=== PATIENT | male | born 1975 | race African-American/Black ===

== ENCOUNTER 2025-06-16 14:06 | Inpatient (IN) | payer OTHER ==
[~2025-06-16] VITALS: Ht 182.9 cm; Wt 104.5 kg
--- NOTE | 2025-06-16 15:08 | ED.PDOC ---
History of Present Illness(SKN HPI Comments A 49 YEAR OLD MALE BROUGHT IN BY AMBULANCE PRESENTS TO THE ED WITH COMPLAINT OF LUMP OF RIGHT BUTTOCK. PATIENT STATES HE HAS HAD A PAINFUL LUMP ON HIS RIGHT BUTTOCK WITH REDNESS AND SWELLING FOR THE PAST 1 WEEK. PATIENT REPORTS HE WAS ALREADY PRESCRIBED AMOXICILLIN, BUT NOTES THERE HAS BEEN NO IMPROVEMENT IN HIS SYMPTOMS. PATIENT DENIES FEVER, CHILLS, SHORTNESS OF BREATH, CHEST PAIN, ABDOMINAL PAIN, NAUSEA, VOMITING, HEADACHE, OR OTHER COMPLAINTS. NO OTHER SYMPTOMS OR MODIFYING FACTORS AT THIS TIME. PATIENT IS ALERT, ORIENTED X 4, AND HAS STEADY GAIT. Chief Complaint: Abscess Time Seen by MD: 14:27 History of Present Illness: Nurses Notes, Carousel Operator Notes, Medications, Allergies Information Source: Patient, Emergency Med Personnel Mode of Arrival: EMS Severity: Moderate Timing: Days Duration: Since onset, Days Prehospital treatment: None Location: Buttock Mechanism: Spontaneous Onset Occurence: Indoors Object: None Condition of Object: Contaminated, Dirty, None Retained Foreign Body: No Wound Type: None Immunization Status of Animal: NA Tetanus: UTD, Unknown History of: None Associated Signs and Symptoms: Redness, Swelling, Pain Past Medical History PAST MEDICAL HISTORY: Denies Surgical History: Denies all surgeries Family History Family History: Reviewed,noncontributory to illness Social History Smoker: Non-Smoker Alcohol: Denies ETOH Use Drugs: Denies Drug Use Lives In: Home Constitutional: denies: chills, diaphoresis, fatigue, fever, malaise, sweats, weakness, others EENTM: denies: blurred vision, double vision, ear bleeding, ear discharge, ear drainage, ear pain, ear ringing, eye pain, eye redness, hearing loss, mouth pain, mouth swelling, nasal discharge, nose bleeding, nose congestion, nose pain, photophobia, tearing, throat pain, throat swelling, voice changes, others Respiratory: denies: cough, hemoptysis, orthopnea, SOB at rest, shortness of breath, SOB with excertion, stridor, wheezing, others Cardiovascular: denies: chest pain, dizzy spells, diaphoresis, Dyspnea on exertion, edema, irregular heart beat, left arm pain, lightheadedness, palpitations, PND, syncope, others Gastrointestinal: denies: abdomen distended, abdominal pain, blood streaked bowels, constipated, diarrhea, dysphagia, difficulty swallowing, hematemesis, melena, nausea, poor appetite, poor fluid intake, rectal bleeding, rectal pain, vomiting, others Genitourinary: denies: burning, dysuria, flank pain, frequency, hematuria, incontinence, penile discharge, penile sore, pain, testicle pain, testicle swelling, urgency, others Neurological: denies: dizziness, fainting, headache, left sided numbness, left sided weakness, numbness, paresthesia, pre-existing deficit, right sided nu mbness, right sided weakness, seizure, speech problems, tingling, tremors, weakness, others Musculoskeletal: denies: back pain, gout, joint pain, joint swelling, muscle pain, muscle stiffness, neck pain, others Integumetry: reports: lumps (LUMP OF RIGHT BUTTOCK WITH REDNESS AND SWELLING); denies: bruises, change in color, change in hair/nails, dryness, laceration, lesions, rash, wounds, others Allergic/Immunocompromised: denies: Difficulty Healing, Frequent Infections, Hives, Itching, others Hematologic/Lymphatic: denies: anemia, blood clots, easy bleeding, easy bruising, swollen glands, others Endocrine: denies: excessive hunger, excessive sweating, excessive thirst, excessive urination, flushing, intolerance to cold, intolerance to heat, unexplained weight gain, unexplained weight loss, others Psychiatric: denies: anxiety, bipolar disorder, depression, hopeless, panic disorder, schizophrenia, sleepless, suicidal, others All Other Systems: Reviewed and Negative Physical Exam General Appearance: Mild Distress HEENT: Normal ENT Inspection, PERRL/EOMI, Pharynx Normal, TMs Normal Neck: Full Range of Motion, Non-Tender, Normal, Normal Inspection Respiratory: Chest Non-Tender, Lungs Clear, No Accessory Muscle Use, No Respiratory Distress, Normal Breath Sounds Cardiovascular: No Edema, No JVD, No Murmur, No Gallop, Normal Peripheral Pulses, Regular Rate/Rhythm Breast Exam: Deferred Gastrointestinal: No Organomegaly, Non Tender, No Pulsatile Mass, Normal Bowel Sounds, Soft Genitalia: Deferred Pelvic: Deferred Rectal: Deferred Extremities: Decreased range of motion, No calf tenderness, Normal capillary refill, No pedal edema, Swelling (REDNESS AND HARDNESS ON RIGHT MIDDLE INNER BUTTOCK, NO OPEN WOUND SEEN. ), Tender (REDNESS AND SWELLING ON RIGHT MIDDLE BUTTOCK. ) Musculoskeletal : Apperance: Normal Neurologic: Alert, screen printer II-XII nml as Tested, No Motor Deficits, Normal Affect, Normal Mood, No Sensory Deficits Cerebellar Function: Normal Reflexes: Normal Skin: Dry, Warm, Other (A LARGE BUMP WITH LOCALIZED REDNESS, SWELLING AND HARDNESS ON RIGHT MIDDLE INNER BUTTOCK, NO OPEN WOUND SEEN AND DRAINAGE, +CELLULITIS. ) Peripheral Pulses: 2+ carotid (R), 2+ carotid (L), 2+ dorsalis pedis (R), 2+ dorsalis pedis (L) Lymphatic: No Adenopathy Was a procedure done? Was a procedure done?: No Differential Diagnosis (INTG) Differential Diagnosis: Cellulitis, N/A Differential Diagnosis: Abscess, Cellulitis, Erysipelas, Hidradenitis suppurativa, Other (FURUNCLE) Differential Diagnosis: N/A Abscess: Cellulitis, Erysipelas, Felon, N/A Differential Diagnosis: N/A X-Ray, Labs, Meds, VS Vital Signs Date Time Temp Pulse Resp B/P (MAP) Pulse Ox O2 Delivery O2 Flow Rate FiO2 06/16/25 14:17 99.9 100 18 144/76 98 99.9 Lab Test 06/16/25 15:16 Range/Units White Blood Count 17.5 H 4.4-10.8 10^3/uL Red Blood Count 5.08 4.5-5.90 10^6/uL Hemoglobin 14.9 13.5-17.5 g/dL Hematocrit 42.9 41.0-53.0 % Mean Corpuscular Volume 84.5 80.0-100.0 fL Mean Corpuscular Hemoglobin 29.4 28.0-32.0 pg Mean Corpuscular Hemoglobin Concent 34.8 32.0-36.0 g/dL Red Cell Distribution Width 14.5 H 11.8-14.3 % Platelet Count 435 140-450 10^3/uL Mean Platelet Volume 6.3 L 6.9-10.8 fL Neutrophils (%) (Auto) 81.1 H 37.0-80.0 % Lymphocytes (%) (Auto) 10.4 10.0-50.0 % Monocytes (%) (Auto) 7.3 0.0-12.0 % Eosinophils (%) (Auto) 0.2 0.0-7.0 % Basophils (%) (Auto) 1.0 0.0-2.0 % Neutrophils # (Auto) 14.2 H 1.6-8.6 10 ^3/uL Lymphocytes # (Auto) 1.8 0.4-5.4 10 ^3/uL Monocytes # (Auto) 1.3 0-1.3 10 ^3/uL Eosinophils # (Auto) 0 0-0.8 10 ^3/uL Basophils # (Auto) 0.2 0-0.2 10 ^3/uL Nucleated Red Blood Cells 0.1 % Sodium Level 140 136-145 mmol/L Potassium Level 4.0 3.5-5.1 mmol/L Chloride Level 101 98-107 mmol/L Carbon Dioxide Level 30 20-31 mmol/L Anion Gap 9 5-15 Blood Urea Nitrogen 9 9-23 mg/dL Creatinine 1.21 0.700-1.30 mg/dL Glomerular Filtration Rate Calc 74 >90 mL/min BUN/Creatinine Ratio 7.4 L 10.0-20.0 Serum Glucose 110 H 74-106 mg/dL Lactic Acid Level 1.4 0.4-2.0 mmol/L Calcium Level 9.7 8.7-10.4 mg/dL X-Ray, Labs, Meds, VS Comment EXTERNAL MEDICAL RECORDS REVIEWED: [NONE] INDEPENDENT HISTORIANS: [NONE] SOCIAL DETERMINANTS OF HEALTH: [NONE] LABS ORDERED: CBC, BMP, LACTIC ACID W/REFLEX, BLOOD CULTURE REVIEWED AND INTERPRETED RESULTS: IMAGING ORDERED: NONE TREATMENTS ORDERED: ROCEPHIN 1 G IV, CLINDAMYCIN 900 MG IV, TORADOL 30 MG IV PROCEDURES PERFORMED: NONE CRITICAL CARE TIME: NONE I HAVE DISCUSSED THE PATIENT WITH THE ATTENDING PHYSICIAN DR. MACDONALD AND HE AGREES WITH THE PATIENT'S PLAN OF CARE. UPON MY PHYSICAL EXAMINATION, THE PATIENT HAD REDNESS, SWELLING, AND HARDNESS TO HIS RIGHT BUTTOCK REGION CONSISTENT WITH CELLULITIS. NO OPEN WOUND NOTED. PATIENT NOTED THAT HE HAD ALREADY BEEN TAKING A COURSE OF AMOXICILLIN WITH NO IMPROVEMENT IN HIS SYMPTOMS. DUE TO THE PATIENT'S PHYSICAL EXAM FINDINGS REVEALING FINDINGS CONSISTENT WITH CELLULITIS OF HIS RIGHT BUTTOCK AND THE FACT THAT HE HAS FAILED OUTPATIENT TREATMENT, I HAVE DETERMINED THE PATIENT SHOULD BE ADMITTED FOR FURTHER TREATMENT AND EVALUATION. THE ON-CALL HOSPITALIST WILL BE CONTACTED FOR ADMISSION OF THIS PATIENT. Time of 1ST Reevaluation: 16:18 Reevaluation 1ST: Unchanged Patient Education/Counseling: Diagnosis, Treatment Family Education/Counseling: Diagnosis, Treatment SEPSIS Sepsis Screen Date sepsis recognized/suspect: Jun 16, 2025 Time Sepsis recognized/suspect: 1417 Recent Procedure: No On Antibiotic Therapy: No Respiratory Rate >20: No Heart Rate >90: Yes Temp<36 C (96.8 F) or >38.3 C: No SBP <90 or MAP <65 mmHG: No New Acute Mental Status Change: No Is the patient on CPAP, BIPAP,: No Physician Orders Blood Culture (06/16/25 15:03) Heplock Iv (06/16/25 ) Vital Signs Date Time Temp Pulse Resp B/P (MAP) Pulse Ox O2 Delivery O2 Flow Rate FiO2 06/16/25 14:17 99.9 100 18 144/76 98 99.9 Laboratory Tests Test 06/16/25 15:16 Lactic Acid Level 1.4 mmol/L (0.4-2.0) White Blood Count 17.5 10^3/uL (4.4-10.8) H Departure 1 Departure Time of Disposition: 16:18 Impression: Primary Impression: Cellulitis of right buttock Additional Impression: Failure of outpatient treatment Disposition: ADMITTED INPATIENT Condition: Serious Critical Care Note Critical Care Time?: No Stability Stability form required: Yes Unstable for transfer: Requires medication, ED Physician Assesment, Possible rapid decline I personally scribed for LUCILA MANCILLA ([email or web address]) on 06/16/25 at 15:08. Electronically submitted by Jaleel Vega ([email or web address]). I personally scribed for LUCILA MANCILLA ([email or web address]) on 06/16/25 at 15:09. Electronically submitted by Jaleel Vega ([email or web address]). LUCILA MANCILLA Jun 16, 2025 15:08
[2025-06-16] MEDS: CLINDAMYCIN 900MG IV 50 ML IV ONE (15:15)
[2025-06-16 15:41] LABS: Hematocrit 42.9 % (41.0-53.0); Hemoglobin 14.9 g/dL (13.5-17.5); Mean Corpuscular Hemoglobin 29.4 pg (28.0-32.0); Mean Corpuscular Volume 84.5 fL (80.0-100.0); Nucleated Red Blood Cells % 0.1 %
[2025-06-16 15:46] LABS: Chloride 101 mmol/L (98-107); Potassium 4.0 mmol/L (3.5-5.1); Sodium 140 mmol/L (136-145)
[2025-06-16 15:47] LABS: Anion Gap 9 (5-15); Calcium 9.7 mg/dL (8.7-10.4); Carbon Dioxide 30 mmol/L (20-31)
[2025-06-16 15:52] LABS: BUN/Creatinine Ratio 7.4 (10.0-20.0)
[2025-06-16 15:54] LABS: Blood Urea Nitrogen 9 mg/dL (9-23); Glucose 110 mg/dL (74-106)
[2025-06-16] MEDS ORDERED: ACETAMINOPHEN 325 MG TAB PO PRN (16:30)
[2025-06-16] MEDS ORDERED: VANCOMYCIN PER PHARMACY 0 MG IV SCH (16:30)
[2025-06-16] MEDS ORDERED: ONDANSETRON HCL 4 MG/2 ML VIAL IV PRN (16:30)
--- NOTE | 2025-06-16 16:55 | DVHHPRES ---
History of Present Illness Resident Creating Document: FAMILIA CAMARENA RESIDENT History of Present Illness Graham Hooker is a 49 years old male patient with history of recurrent boils presented to the ED with the chief complaints of severe gluteal pain for 7 days. Patient reported he has been having history of boils but relieved with antibiotic ointment. One week back patient developed swelling on right gluteal region near cleft for which he took Augmentin but no result and it has been worsening for last couple of days associated with fever, chills which brought him to visit ED. 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 patient denies recent trauma, bite and other associated symptoms. 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 Denies smoking, alcohol and other drug abuse Allergies: No known allergies Home medications: None Review of Systems Review of Systems Patient seen and examined at the bedside. All events reviewed patient is currently complaining of severe gluteal pain associated with a fever and chills but no other complaints at this time. Allergies: Coded Allergies: NO KNOWN ALLERGIES (Unverified , 06/16/25) Medications Current Medications Medications Dose Ordered Sig/Lyn Route Start Time Stop Time Status Last Admin Dose Admin Sodium Chloride 1,000 ml @ 120 mls/hr Q8H20M IV 06/16/25 16:30 UNV Acetaminophen/ Hydrocodone Bitart 1 tab Q4HP PRN PO 06/16/25 16:30 UNV Ondansetron HCl 4 mg Q4HP PRN IV 06/16/25 16:30 UNV Enoxaparin Sodium 40 mg DAILY SC 06/17/25 10:00 UNV Acetaminophen 650 mg Q6HP PRN PO 06/16/25 16:30 UNV Morphine Sulfate 2 mg Q4HPRN PRN IV 06/16/25 16:30 UNV Vancomycin HCl 0 ml @ 0 mls/hr UD IV 06/16/25 16:30 UNV Piperacillin Sod/ Tazobactam Sod 100 ml @ 25 mls/hr Q8HR IV 06/16/25 22:00 UNV Exam Vital Signs Vital Signs Date Time Temp Pulse Resp B/P (MAP) Pulse Ox O2 Delivery O2 Flow Rate FiO2 06/16/25 14:17 99.9 100 18 144/76 98 99.9 Exam Pt is lying on bed General Appearance: Alert, Oriented X3, Cooperative, Not in acute distress HEENT: Atraumatic, Mucous membranes moist/pink Respiratory: Clear to auscultation, Normal air movement, No added sounds Cardiovascular: Regular rate, Normal S1, Normal S2, No murmurs Abdominal: Active bowel sounds, Soft, no distention, no tenderness Extremities: No edema, Normal pulses, No tenderness/swelling Skin: Hung in the NS, right gluteal swelling with induration, tenderness Neuro: Normal speech, sensorimotor deficits none Psych/Mental Status: Mental status NL, Mood NL Nurse was there as financial supervisor during examination Labs/Xrays Labs Test 06/16/25 15:16 Range/Units White Blood Count 17.5 H 4.4-10.8 10^3/uL Red Blood Count 5.08 4.5-5.90 10^6/uL Hemoglobin 14.9 13.5-17.5 g/dL Hematocrit 42.9 41.0-53.0 % Mean Corpuscular Volume 84.5 80.0-100.0 fL Mean Corpuscular Hemoglobin 29.4 28.0-32.0 pg Mean Corpuscular Hemoglobin Concent 34.8 32.0-36.0 g/dL Red Cell Distribution Width 14.5 H 11.8-14.3 % Platelet Count 435 140-450 10^3/uL Mean Platelet Volume 6.3 L 6.9-10.8 fL Neutrophils (%) (Auto) 81.1 H 37.0-80.0 % Lymphocytes (%) (Auto) 10.4 10.0-50.0 % Monocytes (%) (Auto) 7.3 0.0-12.0 % Eosinophils (%) (Auto) 0.2 0.0-7.0 % Basophils (%) (Auto) 1.0 0.0-2.0 % Neutrophils # (Auto) 14.2 H 1.6-8.6 10 ^3/uL Lymphocytes # (Auto) 1.8 0.4-5.4 10 ^3/uL Monocytes # (Auto) 1.3 0-1.3 10 ^3/uL Eosinophils # (Auto) 0 0-0.8 10 ^3/uL Basophils # (Auto) 0.2 0-0.2 10 ^3/uL Nucleated Red Blood Cells 0.1 % Sodium Level 140 136-145 mmol/L Potassium Level 4.0 3.5-5.1 mmol/L Chloride Level 101 98-107 mmol/L Carbon Dioxide Level 30 20-31 mmol/L Anion Gap 9 5-15 Blood Urea Nitrogen 9 9-23 mg/dL Creatinine 1.21 0.700-1.30 mg/dL Glomerular Filtration Rate Calc 74 >90 mL/min BUN/Creatinine Ratio 7.4 L 10.0-20.0 Serum Glucose 110 H 74-106 mg/dL Lactic Acid Level 1.4 0.4-2.0 mmol/L Calcium Level 9.7 8.7-10.4 mg/dL SEPSIS Sepsis Screen Date sepsis recognized/suspect: Jun 16, 2025 Time Sepsis recognized/suspect: 1416 Recent Procedure: No On Antibiotic Therapy: No Respiratory Rate >20: No Heart Rate >90: Yes Temp<36 C (96.8 F) or >38.3 C: No SBP <90 or MAP <65 mmHG: No New Acute Mental Status Change: No Is the patient on CPAP, BIPAP,: No Physician Orders Blood Culture (06/16/25 15:03) Heplock Iv (06/16/25 ) Admit (06/16/25 16:29) Allergies (06/16/25 16:29) Code Status (06/16/25 16:29) Sodium Chloride 0.9% (06/16/25 16:30) Hydrocodone-Acet 5/325mg Tab ([place] 5/32 (06/16/25 16:30) Ondansetron Hcl (Zofran) (06/16/25 16:30) Enoxaparin Sodium (Lovenox) (06/17/25 10:00) Complete Blood Count (06/17/25 04:00) Comprehensive Metabolic Panel (06/17/25 04:00) Condition: Stable (06/16/25 16:29) Acetaminophen Tablet (Tylenol Tablet) (06/16/25 16:30) Morphine Sulfate Injection (06/16/25 16:30) Vancomycin Per Pharmacy (06/16/25 16:30) Piperacillin-Tazob 3.375gm (Zosyn 3.375g (06/16/25 22:00) * Surgical Consult (06/16/25 ) B-Type Natriuretic Peptide (06/16/25 16:33) Blood Alcohol (06/16/25 16:33) Drug Screen (06/16/25 16:33) Magnesium (06/16/25 16:33) PTPTT (06/16/25 16:33) Thyroid Stimulating Hormone (06/16/25 16:33) Urinalysis (06/16/25 16:33) Vital Signs Date Time Temp Pulse Resp B/P (MAP) Pulse Ox O2 Delivery O2 Flow Rate FiO2 06/16/25 14:17 99.9 100 18 144/76 98 99.9 Laboratory Tests Test 06/16/25 15:16 Lactic Acid Level 1.4 mmol/L (0.4-2.0) White Blood Count 17.5 10^3/uL (4.4-10.8) H Assessment/Plan Assessment/Plan # Gluteal abscess /cellulitis # ? Possible anal fissure # Sepsis likely due to above - admit to med surge - pain management with [place] and morphine as needed - started on IV antibiotics vancomycin and Zosyn - ordered blood cultures - NPO after midnight - surgical consult GI PPX: Protonix VTE ppx: Lovenox Diet: regular for now and NPO after midnight Goals of care addressed with the patient for more than 27 minutes: Full code status Case discussed with ,patient and nurse Plan discussed with: Patient My Orders Orders - FAMILIA CAMARENA RESIDENT Procedure Category Date Status Time Admit ADMIT 06/16/25 Transmitted 16:29 Allergies STEF 06/16/25 In Process 16:29 Code Status CODE 06/16/25 Transmitted 16:29 Sodium Chloride 0.9% PHA 06/16/25 Logged 16:30 Hydrocodone-Acet PHA 06/16/25 Logged 5/325mg Tab ([place] 16:30 Ondansetron Hcl PHA 06/16/25 Logged (Zofran) 16:30 Enoxaparin Sodium PHA 06/17/25 Logged (Lovenox) 10:00 Complete Blood Count LAB 06/17/25 Verified 04:00 Comprehensive LAB 06/17/25 Verified Metabolic Panel 04:00 Condition: Stable STEF 06/16/25 In Process 16:29 Acetaminophen Tablet PHA 06/16/25 Logged (Tylenol Tablet) 16:30 Morphine Sulfate PHA 06/16/25 Logged Injection 16:30 Vancomycin Per PHA 06/16/25 Logged Pharmacy 16:30 Piperacillin-Tazob PHA 06/16/25 Logged 3.375gm (Zosyn 3.375g 22:00 * Surgical Consult CONS 06/16/25 Transmitted B-Type Natriuretic LAB 06/16/25 In Process Peptide 16:33 Blood Alcohol LAB 06/16/25 In Process 16:33 Drug Screen LAB 06/16/25 Logged 16:33 Magnesium LAB 06/16/25 In Process 16:33 PTPTT LAB 06/16/25 Logged 16:33 Thyroid Stimulating LAB 06/16/25 In Process Hormone 16:33 Urinalysis LAB 06/16/25 Logged 16:33 FAMILIA CAMARENA RESIDENT Jun 16, 2025 16:55
[2025-06-16 17:09] LABS: INR 1.04 (0.9-1.15); Partial Thromboplastin Time 29.1 SEC (24.5-34.5); Prothrombin Time 11.0 sec (9.3-11.8)
[2025-06-16 17:14] LABS: Magnesium 2.1 mg/dL (1.6-2.6)
[2025-06-16] MEDS: VANCOMYCIN 1.5GM/250ML 250 ML IV ONE (17:30)
[2025-06-16] MEDS: KETOROLAC TROMETH 30 MG/ML 1ML VIAL IV ONE (18:12)
[2025-06-16 18:26] VITALS: PULSE 99; RESP 17; O2SAT 96
[2025-06-16] MEDS: SODIUM CHLORIDE 0.9% 1,000 ML IV SCH (18:56)
[2025-06-16 20:12] VITALS: PULSE 89; RESP 18; O2SAT 96
[2025-06-16 20:24] VITALS: BP 110/60; PULSE 88; RESP 18; TEMP 99.7; O2SAT 95
[2025-06-16] MEDS: PIPERACILLIN-TAZOB 3.375GM 100 ML IV SCH (20:58)
[2025-06-16 21:00] VITALS: BP_SYST 110; BP_SYST 154; BP_DIAS 60; BP_DIAS 92; PULSE 74; PULSE 88; RESP 15; TEMP 98.9; TEMP 99.7; O2SAT 95
[2025-06-17] VITALS (7 sets, daily range): BP systolic 120–136; BP diastolic 83–95; PULSE 79–92; RESP 16–20; TEMP 96.1–98.8; O2SAT 95–99
[2025-06-17] MEDS: HYDROcodone-ACET 5/325MG TAB PO PRN (04:06)
[2025-06-17 05:45] LABS: Hematocrit 42.5 % (41.0-53.0); Hemoglobin 14.9 g/dL (13.5-17.5); Mean Corpuscular Hemoglobin 29.6 pg (28.0-32.0); Mean Corpuscular Volume 84.4 fL (80.0-100.0); Nucleated Red Blood Cells % 0.1 %
[2025-06-17 05:57] LABS: Alkaline Phosphatase 70 U/L (46-116); Anion Gap 11 (5-15); BUN/Creatinine Ratio 11.2 (10.0-20.0); Blood Urea Nitrogen 11 mg/dL (9-23); Calcium 9.2 mg/dL (8.7-10.4); Carbon Dioxide 26 mmol/L (20-31); Chloride 104 mmol/L (98-107); Glucose 92 mg/dL (74-106); Potassium 4.1 mmol/L (3.5-5.1); Sodium 141 mmol/L (136-145); Total Protein 7.4 g/dL (5.7-8.2)
[2025-06-17 05:58] LABS: Albumin 3.9 g/dL (3.2-4.8); Bilirubin, Total 0.4 mg/dL (0.2-1.0)
[2025-06-17 05:59] LABS: Alanine Aminotransferase 41 U/L (7-40)
--- NOTE | 2025-06-17 09:04 | DVHPN2 ---
Subjective Graham Hooker is a 49 years old male patient with history of recurrent boils presented to the ED with the chief complaints of severe gluteal pain for 7 days. Patient reported he has been having history of boils but relieved with antibiotic ointment. One week back patient developed swelling on right gluteal region near cleft for which he took Augmentin but no result and it has been worsening for last couple of days associated with fever, chills which brought him to visit ED. 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 patient denies recent trauma, bite and other associated symptoms. Patient is seen at bedside today, doing well. Reviewed: H&P Changes from previous H/P or p: No Changes General: Per HPI Objective Vitals Vital Signs Date Time Temp Pulse Resp B/P (MAP) Pulse Ox O2 Delivery O2 Flow Rate FiO2 06/17/25 05:00 98.8 81 16 120/90 (100) 96 98.8 06/16/25 20:12 Room Air* 0 21 Intake/Output Intake and Output 06/17/25 07:00 Intake Total 30 ml Balance 30 ml Intake Oral 30 ml Exam General Appearance: Alert, Oriented X3, Cooperative, Not in acute distress HEENT: Atraumatic, Mucous membranes moist/pink Respiratory: Clear to auscultation, Normal air movement, No added sounds Cardiovascular: Regular rate, Normal S1, Normal S2, No murmurs Abdominal: Active bowel sounds, Soft, no distention, no tenderness Extremities: No edema, Normal pulses, No tenderness/swelling Skin: Hung in the NS, right gluteal swelling with induration, tenderness Neuro: Normal speech, sensorimotor deficits none Psych/Mental Status: Mental status NL, Mood NL Medications Current Medications Medications Dose Ordered Sig/Lyn Route Start Time Stop Time Status Last Admin Dose Admin Sodium Chloride 1,000 ml @ 120 mls/hr Q8H20M IV 06/16/25 16:30 06/17/25 00:50 120 MLS/HR Acetaminophen/ Hydrocodone Bitart 1 tab Q4HP PRN PO 06/16/25 16:30 06/17/25 04:06 1 TAB Ondansetron HCl 4 mg Q4HP PRN IV 06/16/25 16:30 Enoxaparin Sodium 40 mg DAILY SC 06/17/25 10:00 Acetaminophen 650 mg Q6HP PRN PO 06/16/25 16:30 Morphine Sulfate 2 mg Q4HPRN PRN IV 06/16/25 16:30 Vancomycin HCl 0 ml @ 0 mls/hr UD IV 06/16/25 16:30 Piperacillin Sod/ Tazobactam Sod 100 ml @ 25 mls/hr Q8HR IV 06/16/25 22:00 06/17/25 05:05 25 MLS/HR Laboratory Results Laboratory Tests 06/17/25 04:19 Chemistry Test 06/16/25 15:16 06/17/25 04:19 Calcium Level 9.7 mg/dL (8.7-10.4) 9.2 mg/dL (8.7-10.4) Magnesium Level 2.1 mg/dL (1.6-2.6) Albumin 3.9 g/dL (3.2-4.8) Total Protein 7.4 g/dL (5.7-8.2) Coagulation Test 06/16/25 15:16 Prothrombin Time 11.0 sec (9.3-11.8) Prothrombin Time INR 1.04 (0.9-1.15) Activated Partial Thromboplast Time 29.1 SEC (24.5-34.5) Cardiac Markers Test 06/16/25 15:16 B-Type Natriuretic Peptide 12.22 pg/mL (0-100) LFT Test 06/17/25 04:19 Alanine Aminotransferase (ALT) 41 U/L (7-40) H Alkaline Phosphatase 70 U/L (46-116) Aspartate Amino Transferase (AST) 38 U/L (13-40) Total Bilirubin 0.4 mg/dL (0.2-1.0) HgA1c, TSH Test 06/16/25 15:16 Thyroid Stimulating Hormone (TSH) 0.85 uIU/mL (0.55-4.78) Labs and/or images reviewed: Labs reviewed by me, Image(s) reviewed by me Assessment/Plan Assessment/Plan 06/17 - gluteal cellulitis, gluteal abscess possible, need assess for possible anal fissure. 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 -significant pain during exam, no draining wounds in A&O cleft, no appreciable fissures, surgery consulted., multiple areas of hardened skin, possible old resolved abscesses. We will likely need CT with IV contrast, we will review surgical recommendations. # Gluteal abscess /cellulitis # ? Possible anal fissure # Sepsis likely due to above - admit to med surge - pain management with [place] and morphine as needed - started on IV antibiotics vancomycin and Zosyn - ordered blood cultures - NPO after midnight - surgical consult GI PPX: Protonix VTE ppx: Lovenox Plan discussed with: Patient Date of Service: Jun 17, 2025 Billing Provider: PA VENTURA MD Common Visit Codes: [id number] INP/OBS CARE(HIGH) PA VENTURA MD Jun 17, 2025 09:04
[2025-06-17] MEDS: MORPHINE SULFATE INJ 2 MG/ml SYRG IV PRN (09:59)
[2025-06-17] MEDS: ENOXAPARIN SOD 40 MG/0.4 ML SYRINGE SC SCH (10:00)
[2025-06-17] MEDS ORDERED: fentaNYL CITRATE 100 MCG/2 ML VL ONE (10:03)
[2025-06-17] MEDS ORDERED: KETAMINE 50mg/ML 1ml syringe ONE (10:03)
[2025-06-17] MEDS ORDERED: LIDOCAINE W/ EPINEPHRINE 1% 20ML VIAL ONE (10:11)
[2025-06-17] MEDS ORDERED: BUPIVACAINE 0.5% MPF INJ 30ML SDV IJ ONE (10:11)
--- NOTE | 2025-06-17 10:14 | DVHINCON2 ---
Date of service: Jun 17, 2025 Family History: Depression Hypertension G8 MOTHER G8 FATHER Allergies: Coded Allergies: NO KNOWN ALLERGIES (Unverified , 06/16/25) Current Medications Current Medications Medications (Trade) Dose Ordered Sig/Lyn Route PRN Reason Start Time Stop Time Status Last Admin Sodium Chloride 1,000 ml @ 120 mls/hr Q8H20M IV 06/16/25 16:30 06/17/25 00:50 Acetaminophen/ Hydrocodone Bitart ([place] 5/325MG Tab) 1 tab Q4HP PRN PO MODERATE PAIN (4-6 PAIN SCALE) 06/16/25 16:30 06/17/25 04:06 Ondansetron HCl (Zofran) 4 mg Q4HP PRN IV NAUSEA / VOMITING 06/16/25 16:30 Enoxaparin Sodium (Lovenox) 40 mg DAILY SC 06/17/25 10:00 Acetaminophen (Tylenol Tablet) 650 mg Q6HP PRN PO PAIN SCALE 1-3 OR TEMP>100.4 06/16/25 16:30 Morphine Sulfate 2 mg Q4HPRN PRN IV SEVERE PAIN (7-10 PAIN SCALE) 06/16/25 16:30 06/17/25 09:59 Vancomycin HCl 0 ml @ 0 mls/hr UD IV 06/16/25 16:30 Piperacillin Sod/ Tazobactam Sod 100 ml @ 25 mls/hr Q8HR IV 06/16/25 22:00 06/17/25 05:05 Vital Signs Vital Signs Date Time Temp Pulse Resp B/P (MAP) Pulse Ox O2 Delivery O2 Flow Rate FiO2 06/17/25 09:59 80 20 131/95 06/17/25 09:00 98.5 97 98.5 06/16/25 20:12 Room Air* 0 21 Labs/Diagnostic Data Labs Test 06/17/25 04:19 06/16/25 15:16 Range/Units White Blood Count 17.1 H 4.4-10.8 10^3/uL Red Blood Count 5.04 4.5-5.90 10^6/uL Hemoglobin 14.9 13.5-17.5 g/dL Hematocrit 42.5 41.0-53.0 % Mean Corpuscular Volume 84.4 80.0-100.0 fL Mean Corpuscular Hemoglobin 29.6 28.0-32.0 pg Mean Corpuscular Hemoglobin Concent 35.1 32.0-36.0 g/dL Red Cell Distribution Width 14.4 H 11.8-14.3 % Platelet Count 435 140-450 10^3/uL Mean Platelet Volume 6.6 L 6.9-10.8 fL Neutrophils (%) (Auto) 72.2 37.0-80.0 % Lymphocytes (%) (Auto) 16.4 10.0-50.0 % Monocytes (%) (Auto) 10.7 0.0-12.0 % Eosinophils (%) (Auto) 0.5 0.0-7.0 % Basophils (%) (Auto) 0.2 0.0-2.0 % Neutrophils # (Auto) 12.3 H 1.6-8.6 10 ^3/uL Lymphocytes # (Auto) 2.8 0.4-5.4 10 ^3/uL Monocytes # (Auto) 1.8 H 0-1.3 10 ^3/uL Eosinophils # (Auto) 0.1 0-0.8 10 ^3/uL Basophils # (Auto) 0 0-0.2 10 ^3/uL Nucleated Red Blood Cells 0.1 % Sodium Level 141 136-145 mmol/L Potassium Level 4.1 3.5-5.1 mmol/L Chloride Level 104 98-107 mmol/L Carbon Dioxide Level 26 20-31 mmol/L Anion Gap 11 5-15 Blood Urea Nitrogen 11 9-23 mg/dL Creatinine 0.98 0.700-1.30 mg/dL Glomerular Filtration Rate Calc 95 >90 mL/min BUN/Creatinine Ratio 11.2 10.0-20.0 Serum Glucose 92 74-106 mg/dL Calcium Level 9.2 8.7-10.4 mg/dL Total Bilirubin 0.4 0.2-1.0 mg/dL Aspartate Amino Transferase (AST) 38 13-40 U/L Alanine Aminotransferase (ALT) 41 H 7-40 U/L Alkaline Phosphatase 70 46-116 U/L Total Protein 7.4 5.7-8.2 g/dL Albumin 3.9 3.2-4.8 g/dL Random Vancomycin Level < 3.0 L 5-10 ug/mL Prothrombin Time 11.0 9.3-11.8 sec Prothrombin Time INR 1.04 0.9-1.15 Activated Partial Thromboplast Time 29.1 24.5-34.5 SEC Lactic Acid Level 1.4 0.4-2.0 mmol/L Magnesium Level 2.1 1.6-2.6 mg/dL B-Type Natriuretic Peptide 12.22 0-100 pg/mL Thyroid Stimulating Hormone (TSH) 0.85 0.55-4.78 uIU/mL Plasma/Serum Blood Alcohol < 3.0 <10 mg/dL Assessment one week of severe pain in the right buttock, has a large right perirectal abscess, I and D explained in detail Plan discussed with: Patient HERNANDO TOBIAS MD Jun 17, 2025 10:14
[2025-06-17] MEDS ORDERED: HYDROmorphone HCL 2 MG/ML VL/or syr IV PRN ×3 (10:15)
--- NOTE | 2025-06-17 11:58 | DVHOP2 ---
Operative Report OPERATIVE NOTE DATE OF PROCEDURE: 06/17/2025 PREOPERATIVE DIAGNOSIS: Right gluteal abscess. POSTOPERATIVE DIAGNOSIS: Right gluteal abscess. PROCEDURE PERFORMED: Incision and drainage of right gluteal abscess. SURGEON: Dr. Sexton HANDY MAN: Alejandrina Vivar NP ANESTHESIA: General endotracheal anesthesia. PROCEDURE DESCRIPTION: The patient was brought to the operating room and placed in a supine position. After the induction of adequate general anesthesia under the supervision of Dr. Sexton, the patient was repositioned into the prone position. The right gluteal region was prepped with wet Betadine solution and draped in a sterile fashion. A vertical incision was made over the area of fluctuance in the right buttock. This resulted in the immediate expression of approximately 80 cc of purulent, foul-smelling drainage. Cultures of the purulent material were obtained and sent for analysis. The wound cavity was subsequently irrigated using a pulse lavage system with one liter of normal saline containing one gram of Ancef. Following thorough irrigation, the wound was packed with half-inch iodoform gauze. A sterile dressing was applied. Sponge, needle, and blade counts were confirmed to be correct at the conclusion of the procedure. The patient tolerated the procedure well and was transferred to the post-ane sthesia care unit in stable condition without any immediate complications. ALEJANDRINA VIVAR NP Jun 17, 2025 11:58
--- NOTE | 2025-06-17 12:09 | DVHINCON2 ---
Consultation - Surgical Date Seen: Jun 17, 2025 Referring Physician Reason for Consultation right gluteal abscess History of Present Illness History of Present Illness Reports a history of recurrent boils that typically resolve with antibiotic treatment. Approximately one week ago, swelling developed in the right gluteal region. Was prescribed Augmentin without relief of pain. The swelling and pain progressively worsened. The onset of fever and chills prompted the presentation to the emergency department. Denies any history of trauma to the right gluteal region. Past Medical/Surgical History Past Medical/Surgical History - History of recurrent boils. - Prior splenectomy. Allergies and medications Allergies: Coded Allergies: NO KNOWN ALLERGIES (Unverified , 06/16/25) Review of systems Review of Systems: HEENT:Normal, CVS:Normal, RESPIRATORY:Normal, GI:Normal, :Normal, NEURO:Normal Examination Vital signs Vital Signs Date Time Temp Pulse Resp B/P (MAP) Pulse Ox O2 Delivery O2 Flow Rate FiO2 06/17/25 11:52 Room Air 0 98 06/17/25 11:15 99 06/17/25 09:59 80 20 131/95 06/17/25 09:00 98.5 98.5 Medications Current Medications Medications (Trade) Dose Ordered Sig/Lyn Route PRN Reason Start Time Stop Time Status Last Admin Sodium Chloride 1,000 ml @ 120 mls/hr Q8H20M IV 06/16/25 16:30 06/17/25 00:50 Acetaminophen/ Hydrocodone Bitart ([place] 5/325MG Tab) 1 tab Q4HP PRN PO MODERATE PAIN (4-6 PAIN SCALE) 06/16/25 16:30 06/17/25 04:06 Ondansetron HCl (Zofran) 4 mg Q4HP PRN IV NAUSEA / VOMITING 06/16/25 16:30 Enoxaparin Sodium (Lovenox) 40 mg DAILY SC 06/17/25 10:00 Acetaminophen (Tylenol Tablet) 650 mg Q6HP PRN PO PAIN SCALE 1-3 OR TEMP>100.4 06/16/25 16:30 Morphine Sulfate 2 mg Q4HPRN PRN IV SEVERE PAIN (7-10 PAIN SCALE) 06/16/25 16:30 06/17/25 09:59 Vancomycin HCl 0 ml @ 0 mls/hr UD IV 06/16/25 16:30 Piperacillin Sod/ Tazobactam Sod 100 ml @ 25 mls/hr Q8HR IV 06/16/25 22:00 06/17/25 05:05 Hydromorphone HCl (Dilaudid Injection) 0.5 mg Q2HP PRN IV SEVERE PAIN (7-10 PAIN SCALE) 06/17/25 10:15 06/17/25 10:38 DC Hydromorphone HCl (Dilaudid Injection) 0.5 mg Q10M PRN IV SEVERE PAIN (7-10 PAIN SCALE) 06/17/25 10:15 06/17/25 10:56 DC Hydromorphone HCl (Dilaudid Injection) 0.25 mg Q10M PRN IV MODERATE PAIN (4-6 PAIN SCALE) 06/17/25 10:15 06/17/25 10:46 DC Laboratory Labs Test 06/17/25 04:19 06/16/25 15:16 Range/Units White Blood Count 17.1 H 4.4-10.8 10^3/uL Red Blood Count 5.04 4.5-5.90 10^6/uL Hemoglobin 14.9 13.5-17.5 g/dL Hematocrit 42.5 41.0-53.0 % Mean Corpuscular Volume 84.4 80.0-100.0 fL Mean Corpuscular Hemoglobin 29.6 28.0-32.0 pg Mean Corpuscular Hemoglobin Concent 35.1 32.0-36.0 g/dL Red Cell Distribution Width 14.4 H 11.8-14.3 % Platelet Count 435 140-450 10^3/uL Mean Platelet Volume 6.6 L 6.9-10.8 fL Neutrophils (%) (Auto) 72.2 37.0-80.0 % Lymphocytes (%) (Auto) 16.4 10.0-50.0 % Monocytes (%) (Auto) 10.7 0.0-12.0 % Eosinophils (%) (Auto) 0.5 0.0-7.0 % Basophils (%) (Auto) 0.2 0.0-2.0 % Neutrophils # (Auto) 12.3 H 1.6-8.6 10 ^3/uL Lymphocytes # (Auto) 2.8 0.4-5.4 10 ^3/uL Monocytes # (Auto) 1.8 H 0-1.3 10 ^3/uL Eosinophils # (Auto) 0.1 0-0.8 10 ^3/uL Basophils # (Auto) 0 0-0.2 10 ^3/uL Nucleated Red Blood Cells 0.1 % Sodium Level 141 136-145 mmol/L Potassium Level 4.1 3.5-5.1 mmol/L Chloride Level 104 98-107 mmol/L Carbon Dioxide Level 26 20-31 mmol/L Anion Gap 11 5-15 Blood Urea Nitrogen 11 9-23 mg/dL Creatinine 0.98 0.700-1.30 mg/dL Glomerular Filtration Rate Calc 95 >90 mL/min BUN/Creatinine Ratio 11.2 10.0-20.0 Serum Glucose 92 74-106 mg/dL Calcium Level 9.2 8.7-10.4 mg/dL Total Bilirubin 0.4 0.2-1.0 mg/dL Aspartate Amino Transferase (AST) 38 13-40 U/L Alanine Aminotransferase (ALT) 41 H 7-40 U/L Alkaline Phosphatase 70 46-116 U/L Total Protein 7.4 5.7-8.2 g/dL Albumin 3.9 3.2-4.8 g/dL Random Vancomycin Level < 3.0 L 5-10 ug/mL Prothrombin Time 11.0 9.3-11.8 sec Prothrombin Time INR 1.04 0.9-1.15 Activated Partial Thromboplast Time 29.1 24.5-34.5 SEC Lactic Acid Level 1.4 0.4-2.0 mmol/L Magnesium Level 2.1 1.6-2.6 mg/dL B-Type Natriuretic Peptide 12.22 0-100 pg/mL Thyroid Stimulating Hormone (TSH) 0.85 0.55-4.78 uIU/mL Plasma/Serum Blood Alcohol < 3.0 <10 mg/dL Examination: GENERAL:Normal, HEENT:Normal, NECK:Normal, LUNGS:Normal, CVS:Normal, ABDOMEN:Normal, MSK:Normal, SKIN:Abnormal (Swelling with induration and tenderness to palpation on the right buttock near the gluteal cleft.) Problem List/Assessment/Plan Problems: (1) Cellulitis of right buttock Assessment and Plan Assessment: - Right gluteal abscess. - Plan: - Incision and drainage of the right gluteal abscess today. Plan discussed with Plan discussed with: Patient, Other (Dr. Sexton ) Visit Coding Surgery Date of Service if different f: Jun 17, 2025 Billing Provider: HERNANDO SEXTON MD Surgery Visit Codes: 37137 - INP CONSULT <80 MIN ALEJANDRINA SANCHEZ NP Jun 17, 2025 12:09
[2025-06-17] MEDS: VANCOMYCIN 1.25GM/250ML 250 ML IV SCH (16:42)
[2025-06-18] VITALS (8 sets, daily range): BP systolic 125–156; BP diastolic 79–103; PULSE 69–96; RESP 16–20; TEMP 97.1–99.3; O2SAT 94–99
[2025-06-18 07:05] LABS: Hematocrit 40.9 % (41.0-53.0); Hemoglobin 14.3 g/dL (13.5-17.5); Mean Corpuscular Hemoglobin 29.5 pg (28.0-32.0); Mean Corpuscular Volume 84.2 fL (80.0-100.0); Nucleated Red Blood Cells % 0.1 %
[2025-06-18 07:16] LABS: Alanine Aminotransferase 32 U/L (7-40); Albumin 3.8 g/dL (3.2-4.8); Alkaline Phosphatase 67 U/L (46-116); Anion Gap 9 (5-15); BUN/Creatinine Ratio 10.4 (10.0-20.0); Blood Urea Nitrogen 10 mg/dL (9-23); Calcium 9.0 mg/dL (8.7-10.4); Carbon Dioxide 26 mmol/L (20-31); Chloride 105 mmol/L (98-107); Potassium 3.9 mmol/L (3.5-5.1); Sodium 140 mmol/L (136-145); Total Protein 7.4 g/dL (5.7-8.2)
[2025-06-18 07:18] LABS: Bilirubin, Total 0.4 mg/dL (0.2-1.0)
[2025-06-18 07:20] LABS: Glucose 121 mg/dL (74-106)
--- NOTE | 2025-06-18 09:24 | DVHPN2 ---
Progress Note Date Seen: Jun 18, 2025 Medical Necessity Reason Pt with a Central, PICC or Fol: No Objective vital signs Vital Sign Date Time Temp Pulse Resp B/P (MAP) Pulse Ox O2 Delivery O2 Flow Rate FiO2 06/18/25 08:16 79 16 99 Room Air* 0 21 06/18/25 05:00 97.1 135/79 (97) 97.1 Total Intake and Output 06/17/25 06/17/25 06/18/25 15:00 23:00 07:00 Intake Total 300 ml 1150 ml Output Total 700 ml Balance 300 ml 450 ml medications Current Medications Medications Dose Ordered Sig/Lyn Route Start Time Stop Time Status Last Admin Dose Admin Sodium Chloride 1,000 ml @ 120 mls/hr Q8H20M IV 06/16/25 16:30 06/17/25 00:50 120 MLS/HR Acetaminophen/ Hydrocodone Bitart 1 tab Q4HP PRN PO 06/16/25 16:30 06/17/25 04:06 1 TAB Ondansetron HCl 4 mg Q4HP PRN IV 06/16/25 16:30 Enoxaparin Sodium 40 mg DAILY SC 06/17/25 10:00 Acetaminophen 650 mg Q6HP PRN PO 06/16/25 16:30 Morphine Sulfate 2 mg Q4HPRN PRN IV 06/16/25 16:30 06/18/25 02:21 2 MG Vancomycin HCl 0 ml @ 0 mls/hr UD IV 06/16/25 16:30 Vancomycin HCl 250 ml @ 200 mls/hr Q12H IV 06/17/25 17:00 06/18/25 04:41 200 MLS/HR Piperacillin Sod/ Tazobactam Sod 100 ml @ 25 mls/hr Q6H IV 06/18/25 12:00 laboratory and microbiology Laboratory Tests 06/18/25 06:13 Test 06/18/25 06:13 Range/Units Serum Glucose 121 H 74-106 mg/dL Problem List/Assessment/Plan Problem List/Assessment/Plan 06/18/25 feelsw"much better", persistent leukocytosis, continue IV antibiotics at least another 24 hours. Plan discussed with: Patient HERNANDO TOBIAS MD Jun 18, 2025 09:24
[2025-06-18] MEDS: SODIUM CHLORIDE 0.9% 1,000 ML IV SCH (11:45)
[2025-06-18] MEDS: PIPERACILLIN-TAZOB 3.375GM 100 ML IV SCH (12:00)
[2025-06-18] MEDS ORDERED: ROCURONIUM 10MG/ML 10ML VIAL IV ONE (12:17)
[2025-06-18] MEDS ORDERED: METOCLOPRAMIDE HCL 5MG/ml INJ 2ml VIAL IV ONE (12:19)
--- NOTE | 2025-06-18 16:12 | DVHPNRES ---
Progress Note Date Seen: Jun 18, 2025 Resident Creating Document: SAMIR MARTIN RESIDENT Medical Necessity Reason Pt with a Central, PICC or Fol: No Subjective Review of Systems Graham Hooker is a 49 years old male patient with history of recurrent boils presented to the ED with the chief complaints of severe gluteal pain for 7 days. Patient reported he has been having history of boils but relieved with antibiotic ointment. One week back patient developed swelling on right gluteal region near cleft for which he took Augmentin but no result and it has been worsening for last couple of days associated with fever, chills which brought him to visit ED. 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 patient denies recent trauma, bite and other associated symptoms. 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 Denies smoking, alcohol and other drug abuse Allergies: No known allergies Home medications: None Patient seen and examined at bedside. Patient is alert and oriented to time, place person and responding to all questions. Complains of pain in his right gluteal area. Eyes: No Pain, No Vision change, No Conjunctivae inflammation, No Eyelid inflammation, No Other, No Redness ENT: No Ear pain, No Ear discharge, No Nose pain, No Nose discharge, No Nose congestion, No Mouth pain, No Mouth swelling, No Throat pain, No Throat swelling, No Other Cardiovascular: No Chest Pain, No Palpitations, No Orthopnea, No Paroxysmal No Dyspnea, No Edema, No Lt Headedness, No Other Respiratory: No Cough, No Dry, No Shortness of breath, No SOB with exertion, No Wheezing, No Hemoptysis, No Pleuritic Pain, No Sputum, No Other Gastrointestinal: No Nausea, No Vomiting, No Abdominal Pain, No Diarrhea, No Constipation, No Melena, No Hematochezia, No Other Genitourinary: No Dysuria, No Frequency, No Incontinence, No Hematuria, No Retention, No Other 06/18- The patient was seen at bedside today. Patient mentions that the pain has reduced considerably. iv Antibiotics were continued. Surgery saw the patient asked to continue with IV antibiotics for at least 24 hours. White count today was 20,000. Objective vital signs Vital Sign Date Time Temp Pulse Resp B/P (MAP) Pulse Ox O2 Delivery O2 Flow Rate FiO2 06/18/25 13:00 98.5 79 19 156/95 (115) 94 98.5 06/18/25 08:16 Room Air* 0 21 Total Intake and Output 06/17/25 06/17/25 06/18/25 15:00 23:00 07:00 Intake Total 300 ml 1150 ml Output Total 700 ml Balance 300 ml 450 ml medications Current Medications Medications Dose Ordered Sig/Lyn Route Start Time Stop Time Status Last Admin Dose Admin Acetaminophen/ Hydrocodone Bitart 1 tab Q4HP PRN PO 06/16/25 16:30 06/17/25 04:06 1 TAB Ondansetron HCl 4 mg Q4HP PRN IV 06/16/25 16:30 Enoxaparin Sodium 40 mg DAILY SC 06/17/25 10:00 06/18/25 09:53 40 MG Acetaminophen 650 mg Q6HP PRN PO 06/16/25 16:30 Morphine Sulfate 2 mg Q4HPRN PRN IV 06/16/25 16:30 06/18/25 11:34 2 MG Vancomycin HCl 0 ml @ 0 mls/hr UD IV 06/16/25 16:30 Vancomycin HCl 250 ml @ 200 mls/hr Q12H IV 06/17/25 17:00 06/18/25 04:41 200 MLS/HR Piperacillin Sod/ Tazobactam Sod 100 ml @ 25 mls/hr Q6H IV 06/18/25 12:00 06/18/25 12:00 25 MLS/HR Sodium Chloride 1,000 ml @ 75 mls/hr [id number] IV 06/18/25 11:45 Examination General Appearance: Alert, Oriented X3, Cooperative, Not in acute distress HEENT: Atraumatic, Mucous membranes moist/pink Respiratory: Clear to auscultation, Normal air movement, No added sounds Cardiovascular: Regular rate, Normal S1, Normal S2, No murmurs Abdominal: Active bowel sounds, Soft, no distention, no tenderness Extremities: No edema, Normal pulses, No tenderness/swelling Skin: bandage present after I&D Neuro: Normal speech, sensorimotor deficits none Psych/Mental Status: Mental status NL, Mood NL Nurse was there as rail gang supervisor during examination laboratory and microbiology Laboratory Tests 06/18/25 06:13 Test 06/18/25 06:13 Range/Units Serum Glucose 121 H 74-106 mg/dL Microbiology Date/Time Source Procedure Growth Status 06/17/25 11:05 Buttock Gram Stain - Final Resulted 06/17/25 11:05 Buttock Wound Culture - Preliminary Resulted 06/16/25 15:16 Blood Blood Culture - Preliminary NO GROWTH AFTER 48 HOURS OF INCUBATION. Resulted Labs and/or images reviewed: Labs reviewed by me, Image(s) reviewed by me Problem List/Assessment/Plan Problem List/Assessment/Plan Gluteal abscess /cellulitis ? Possible anal fissure Sepsis likely due to above - med surge - pain management with [place] and morphine as needed - started on IV antibiotics vancomycin and Zosyn - ordered blood cultures - I&D done on 06/17 -wound culture sent-pending results GI PPX: Protonix VTE ppx: Lovenox Diet: regular for now and NPO after midnight Goals of care addressed with the patient for more than 27 minutes: Full code status Case discussed with ,patient and nurse Plan discussed with: Patient My Orders My Orders Orders - SAMIR MARTIN RESIDENT Procedure Category Date Status Time Blood Culture DINORA 06/18/25 In Process 12:29 SAMIR MARTIN RESIDENT Jun 18, 2025 16:12
[2025-06-19] VITALS (8 sets, daily range): BP systolic 116–137; BP diastolic 64–86; PULSE 62–77; RESP 15–19; TEMP 97.8–98.6; O2SAT 97–99
[2025-06-19 04:38] LABS: Anion Gap 8 (5-15); Calcium 8.8 mg/dL (8.7-10.4); Carbon Dioxide 31 mmol/L (20-31); Chloride 102 mmol/L (98-107); Potassium 4.0 mmol/L (3.5-5.1); Sodium 141 mmol/L (136-145)
[2025-06-19 04:43] LABS: Nucleated Red Blood Cells % 0.3 %
[2025-06-19 04:44] LABS: BUN/Creatinine Ratio 8.0 (10.0-20.0); Glucose 98 mg/dL (74-106)
[2025-06-19 04:45] LABS: Hematocrit 42.8 % (41.0-53.0); Hemoglobin 14.9 g/dL (13.5-17.5); Mean Corpuscular Hemoglobin 29.2 pg (28.0-32.0); Mean Corpuscular Volume 84.2 fL (80.0-100.0)
[2025-06-19 04:51] LABS: Blood Urea Nitrogen 9 mg/dL (9-23)
[2025-06-19 10:21] LABS: Hepatitis B Surface Antigen Negative (Negative)
[2025-06-19 11:11] LABS: Hepatitis C Antibody Negative (Negative)
--- NOTE | 2025-06-19 13:07 | DVHPN2 ---
Subjective Date Seen: Jun 19, 2025 Post op day Post op day: 2 Patient reports: No new complaints Nursing reports: No new complaints General: Normal HNT: Normal Cardiovascular: Normal Respiratory: Normal Gastrointestinal: Normal Genitourinary: Normal Musculoskeletal: Normal Neurological: Normal Objective Vitals Vital Sign Date Time Temp Pulse Resp B/P (MAP) Pulse Ox O2 Delivery O2 Flow Rate FiO2 06/19/25 09:00 98.0 62 15 120/86 (97) 99 98.0 06/19/25 08:15 Room Air* 0 21 Total Intake and Output 06/18/25 06/18/25 06/19/25 15:00 23:00 07:00 Intake Total 2850 ml 1290 ml Output Total 1525 ml 4 ml Balance 1325 ml 1286 ml Medications Current Medications Medications Dose Ordered Sig/Lyn Route Start Time Stop Time Status Last Admin Dose Admin Acetaminophen/ Hydrocodone Bitart 1 tab Q4HP PRN PO 06/16/25 16:30 06/17/25 04:06 1 TAB Ondansetron HCl 4 mg Q4HP PRN IV 06/16/25 16:30 Enoxaparin Sodium 40 mg DAILY SC 06/17/25 10:00 06/19/25 11:26 40 MG Acetaminophen 650 mg Q6HP PRN PO 06/16/25 16:30 Morphine Sulfate 2 mg Q4HPRN PRN IV 06/16/25 16:30 06/19/25 00:00 2 MG Vancomycin HCl 0 ml @ 0 mls/hr UD IV 06/16/25 16:30 Vancomycin HCl 250 ml @ 200 mls/hr Q12H IV 06/17/25 17:00 06/19/25 04:54 200 MLS/HR Piperacillin Sod/ Tazobactam Sod 100 ml @ 25 mls/hr Q6H IV 06/18/25 12:00 06/19/25 12:19 25 MLS/HR Sodium Chloride 1,000 ml @ 75 mls/hr [id number] IV 06/18/25 11:45 06/19/25 00:01 75 MLS/HR General: Normal, Well developed Head/Eyes: Normal ENT: Normal Neck: Normal Lungs: Normal, Normal inspection Cardiovascular: Normal, Regular rate and rhythm Abdominal: Normal Musculoskeletal: Normal Extremities: Normal Skin: Other (right buttock wound ) Labs and Microbiology Laboratory Tests 06/19/25 04:02 Test 06/19/25 04:02 Range/Units Serum Glucose 98 74-106 mg/dL Ass/Plan Labs and/or images reviewed: Labs reviewed by me, Image(s) reviewed by me Problem List Gluteal abscess /cellulitis ? Possible anal fissure Sepsis likely due to above - med surge - pain management with [place] and morphine as needed - started on IV antibiotics vancomycin and Zosyn - ordered blood cultures - I&D done on 06/17 -wound culture sent-pending results GI PPX: Protonix VTE ppx: Lovenox Diet: regular for now and NPO after midnight Goals of care addressed with the patient for more than 27 minutes: Full code status Case discussed with ,patient and nurse Assessment/Plan doing well , no new complaints wound ok Plan: per surgery on to discharge sitzs bath 2-3 times a day irrigate wound Prognosis: Good Plan discussed with patient, Dr. Sexton Visit Coding Surgery Date of Service if different f: Jun 19, 2025 Billing Provider: HERNANDO SEXTON MD Surgery Visit Codes: [id number] INP/OBS CARE(HIGH) ALEJANDRINA SANCHEZ LOSS PREVENTION/SAFETY DISTRICT MANAGER Jun 19, 2025 13:07
--- NOTE | 2025-06-19 13:08 | DVHPN2 ---
Progress Note Date Seen: Jun 19, 2025 Medical Necessity Reason Pt with a Central, PICC or Fol: No Objective vital signs Vital Sign Date Time Temp Pulse Resp B/P (MAP) Pulse Ox O2 Delivery O2 Flow Rate FiO2 06/19/25 09:00 98.0 62 15 120/86 (97) 99 98.0 06/19/25 08:15 Room Air* 0 21 Total Intake and Output 06/18/25 06/18/25 06/19/25 14:59 22:59 06:59 Intake Total 2850 ml 1290 ml Output Total 1525 ml 4 ml Balance 1325 ml 1286 ml medications Current Medications Medications Dose Ordered Sig/Lyn Route Start Time Stop Time Status Last Admin Dose Admin Acetaminophen/ Hydrocodone Bitart 1 tab Q4HP PRN PO 06/16/25 16:30 06/17/25 04:06 1 TAB Ondansetron HCl 4 mg Q4HP PRN IV 06/16/25 16:30 Enoxaparin Sodium 40 mg DAILY SC 06/17/25 10:00 06/19/25 11:26 40 MG Acetaminophen 650 mg Q6HP PRN PO 06/16/25 16:30 Morphine Sulfate 2 mg Q4HPRN PRN IV 06/16/25 16:30 06/19/25 00:00 2 MG Vancomycin HCl 0 ml @ 0 mls/hr UD IV 06/16/25 16:30 Vancomycin HCl 250 ml @ 200 mls/hr Q12H IV 06/17/25 17:00 06/19/25 04:54 200 MLS/HR Piperacillin Sod/ Tazobactam Sod 100 ml @ 25 mls/hr Q6H IV 06/18/25 12:00 06/19/25 12:19 25 MLS/HR Sodium Chloride 1,000 ml @ 75 mls/hr [id number] IV 06/18/25 11:45 06/19/25 00:01 75 MLS/HR laboratory and microbiology Laboratory Tests 06/19/25 04:02 Test 06/19/25 04:02 Range/Units Serum Glucose 98 74-106 mg/dL Problem List/Assessment/Plan Problem List/Assessment/Plan 06/18/25 feelsw"much better", persistent leukocytosis, continue IV antibiotics at least another 24 hours. 06/19/25 doing well, afebrile, wbc lower, cleared for discharge Plan discussed with: Patient HERNANDO TOBIAS MD Jun 19, 2025 13:08
--- NOTE | 2025-06-19 16:14 | DVHPNRES ---
Progress Note Date Seen: Jun 19, 2025 Resident Creating Document: SAMIR MARTIN RESIDENT Medical Necessity Reason Pt with a Central, PICC or Fol: No Subjective Review of Systems Graham Hooker is a 49 years old male patient with history of recurrent boils presented to the ED with the chief complaints of severe gluteal pain for 7 days. Patient reported he has been having history of boils but relieved with antibiotic ointment. One week back patient developed swelling on right gluteal region near cleft for which he took Augmentin but no result and it has been worsening for last couple of days associated with fever, chills which brought him to visit ED. 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 patient denies recent trauma, bite and other associated symptoms. 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 Denies smoking, alcohol and other drug abuse Allergies: No known allergies Home medications: None Patient seen and examined at bedside. Patient is alert and oriented to time, place person and responding to all questions. Complains of pain in his right gluteal area. Eyes: No Pain, No Vision change, No Conjunctivae inflammation, No Eyelid inflammation, No Other, No Redness ENT: No Ear pain, No Ear discharge, No Nose pain, No Nose discharge, No Nose congestion, No Mouth pain, No Mouth swelling, No Throat pain, No Throat swelling, No Other Cardiovascular: No Chest Pain, No Palpitations, No Orthopnea, No Paroxysmal No Dyspnea, No Edema, No Lt Headedness, No Other Respiratory: No Cough, No Dry, No Shortness of breath, No SOB with exertion, No Wheezing, No Hemoptysis, No Pleuritic Pain, No Sputum, No Other Gastrointestinal: No Nausea, No Vomiting, No Abdominal Pain, No Diarrhea, No Constipation, No Melena, No Hematochezia, No Other Genitourinary: No Dysuria, No Frequency, No Incontinence, No Hematuria, No Retention, No Other 06/18- The patient was seen at bedside today. Patient mentions that the pain has reduced considerably. iv Antibiotics were continued. Surgery saw the patient asked to continue with IV antibiotics for at least 24 hours. White count today was 20,000. 06/19- The patient was seen at bedside today. White count today was 13.8. The patient complained of pain and the area of the I and D near the gluteal cleft. Surgery saw the patient recommended Sitz baths 2-3 times per day as cleared the patient for discharge. IV antibiotics were continued today. Possible discharge for tomorrow was discussed with the patient. Objective vital signs Vital Sign Date Time Temp Pulse Resp B/P (MAP) Pulse Ox O2 Delivery O2 Flow Rate FiO2 06/19/25 09:00 98.0 62 15 120/86 (97) 99 98.0 06/19/25 08:15 Room Air* 0 21 Total Intake and Output 06/18/25 06/18/25 06/19/25 15:00 23:00 07:00 Intake Total 2850 ml 1290 ml Output Total 1525 ml 4 ml Balance 1325 ml 1286 ml medications Current Medications Medications Dose Ordered Sig/Lyn Route Start Time Stop Time Status Last Admin Dose Admin Acetaminophen/ Hydrocodone Bitart 1 tab Q4HP PRN PO 06/16/25 16:30 06/17/25 04:06 1 TAB Ondansetron HCl 4 mg Q4HP PRN IV 06/16/25 16:30 Enoxaparin Sodium 40 mg DAILY SC 06/17/25 10:00 06/19/25 11:26 40 MG Acetaminophen 650 mg Q6HP PRN PO 06/16/25 16:30 Morphine Sulfate 2 mg Q4HPRN PRN IV 06/16/25 16:30 06/19/25 00:00 2 MG Vancomycin HCl 0 ml @ 0 mls/hr UD IV 06/16/25 16:30 Vancomycin HCl 250 ml @ 200 mls/hr Q12H IV 06/17/25 17:00 06/19/25 04:54 200 MLS/HR Piperacillin Sod/ Tazobactam Sod 100 ml @ 25 mls/hr Q6H IV 06/18/25 12:00 06/19/25 12:19 25 MLS/HR Sodium Chloride 1,000 ml @ 75 mls/hr [id number] IV 06/18/25 11:45 06/19/25 00:01 75 MLS/HR Examination General Appearance: Alert, Oriented X3, Cooperative, Not in acute distress HEENT: Atraumatic, Mucous membranes moist/pink Respiratory: Clear to auscultation, Normal air movement, No added sounds Cardiovascular: Regular rate, Normal S1, Normal S2, No murmurs Abdominal: Active bowel sounds, Soft, no distention, no tenderness Extremities: No edema, Normal pulses, No tenderness/swelling Skin: bandage present after I&D Neuro: Normal speech, sensorimotor deficits none Psych/Mental Status: Mental status NL, Mood NL Nurse was there as supervisor putty and caluking during examination laboratory and microbiology Laboratory Tests 06/19/25 04:02 Test 06/19/25 04:02 Range/Units Serum Glucose 98 74-106 mg/dL Microbiology Date/Time Source Procedure Growth Status 06/18/25 13:48 Blood Blood Culture - Preliminary NO GROWTH AFTER 24 HOURS OF INCUBATION. Resulted 06/17/25 11:05 Buttock Gram Stain - Final Resulted 06/17/25 11:05 Buttock Wound Culture - Preliminary Resulted Labs and/or images reviewed: Labs reviewed by me, Image(s) reviewed by me Problem List/Assessment/Plan Problem List/Assessment/Plan Gluteal abscess /cellulitis ? Possible anal fissure Sepsis likely due to above - med surge - pain management with [place] and morphine as needed - started on IV antibiotics vancomycin and Zosyn - ordered blood cultures - I&D done on 06/17 -wound culture sent-pending results -sitzs bath 2-3 times a day -blood culture showed no growth after 72 hours of incubation GI PPX: Protonix VTE ppx: Lovenox Diet: regular Goals of care addressed with the patient for more than 27 minutes: Full code status Case discussed with ,patient and nurse Plan discussed with: Patient SAMIR MARTIN RESIDENT Jun 19, 2025 16:14
[2025-06-20 01:22] VITALS: BP 135/96; PULSE 74; RESP 18; TEMP 98.1; O2SAT 93
[2025-06-20 05:12] VITALS: BP 137/97; PULSE 61; RESP 17; TEMP 98.2; O2SAT 98
[2025-06-20 08:30] VITALS: PULSE 77; RESP 16; O2SAT 98
[2025-06-20 08:36] LABS: Hemoglobin 15.9 g/dL (13.5-17.5)
[2025-06-20 08:39] LABS: Anion Gap 10 (5-15); Carbon Dioxide 26 mmol/L (20-31); Chloride 103 mmol/L (98-107); Potassium 3.8 mmol/L (3.5-5.1); Sodium 139 mmol/L (136-145)
[2025-06-20 08:40] LABS: Calcium 9.1 mg/dL (8.7-10.4)
[2025-06-20 08:44] LABS: Hematocrit 46.0 % (41.0-53.0); Mean Corpuscular Hemoglobin 28.9 pg (28.0-32.0); Mean Corpuscular Volume 83.4 fL (80.0-100.0); Nucleated Red Blood Cells % 0.2 %
[2025-06-20 08:45] LABS: BUN/Creatinine Ratio 8.0 (10.0-20.0); Blood Urea Nitrogen 7 mg/dL (9-23); Glucose 95 mg/dL (74-106)
[2025-06-20 09:00] VITALS: BP 116/69; PULSE 77; RESP 16; TEMP 98.1; O2SAT 98
[2025-06-20] MEDS ORDERED: HYDR-4902 PO (11:00)
[2025-06-20] MEDS ORDERED: AUG875T PO (11:02)
[2025-06-20 12:29] VITALS: BP 116/69; PULSE 77; RESP 16; TEMP 36.7; O2SAT 98
[2025-06-20 12:41] VITALS: BP 146/88; PULSE 78; RESP 18; TEMP 98; O2SAT 98
--- NOTE | 2025-06-20 16:15 | DVHDSRES ---
Discharge Summary Date of Admission Resident Creating Document: SAMIR MARTIN RESIDENT Jun 16, 2025 at 16:29 Date of Discharge: Jun 20, 2025 Labs/Diagnostic Data: Laboratory Results Test 06/20/25 07:44 06/19/25 04:02 06/18/25 06:13 06/17/25 04:19 White Blood Count 9.9 10^3/uL (4.4-10.8) Red Blood Count 5.51 10^6/uL (4.5-5.90) Hemoglobin 15.9 g/dL (13.5-17.5) Hematocrit 46.0 % (41.0-53.0) Mean Corpuscular Volume 83.4 fL (80.0-100.0) Mean Corpuscular Hemoglobin 28.9 pg (28.0-32.0) Mean Corpuscular Hemoglobin Concent 34.6 g/dL (32.0-36.0) Red Cell Distribution Width 14.7 % (11.8-14.3) Platelet Count 540 10^3/uL (140-450) Mean Platelet Volume 6.3 fL (6.9-10.8) Neutrophils (%) (Auto) 53.4 % (37.0-80.0) Lymphocytes (%) (Auto) 31.7 % (10.0-50.0) Monocytes (%) (Auto) 12.0 % (0.0-12.0) Eosinophils (%) (Auto) 2.1 % (0.0-7.0) Basophils (%) (Auto) 0.8 % (0.0-2.0) Neutrophils # (Auto) 5.3 10 ^3/uL (1.6-8.6) Lymphocytes # (Auto) 3.1 10 ^3/uL (0.4-5.4) Monocytes # (Auto) 1.2 10 ^3/uL (0-1.3) Eosinophils # (Auto) 0.2 10 ^3/uL (0-0.8) Basophils # (Auto) 0.1 10 ^3/uL (0-0.2) Nucleated Red Blood Cells 0.2 % Sodium Level 139 mmol/L (136-145) Potassium Level 3.8 mmol/L (3.5-5.1) Chloride Level 103 mmol/L (98-107) Carbon Dioxide Level 26 mmol/L (20-31) Anion Gap 10 (5-15) Blood Urea Nitrogen 7 mg/dL (9-23) Creatinine 0.88 mg/dL (0.700-1.30) Glomerular Filtration Rate Calc 106 mL/min (>90) BUN/Creatinine Ratio 8.0 (10.0-20.0) Serum Glucose 95 mg/dL (74-106) Calcium Level 9.1 mg/dL (8.7-10.4) Vancomycin Level Trough 11.7 ug/mL (5-10) Total Bilirubin 0.4 mg/dL (0.2-1.0) Aspartate Amino Transferase (AST) 22 U/L (13-40) Alanine Aminotransferase (ALT) 32 U/L (7-40) Alkaline Phosphatase 67 U/L (46-116) Total Protein 7.4 g/dL (5.7-8.2) Albumin 3.8 g/dL (3.2-4.8) Random Vancomycin Level < 3.0 ug/mL (5-10) Test 06/16/25 15:16 Prothrombin Time 11.0 sec (9.3-11.8) Prothrombin Time INR 1.04 (0.9-1.15) Activated Partial Thromboplast Time 29.1 SEC (24.5-34.5) Lactic Acid Level 1.4 mmol/L (0.4-2.0) Magnesium Level 2.1 mg/dL (1.6-2.6) B-Type Natriuretic Peptide 12.22 pg/mL (0-100) Thyroid Stimulating Hormone (TSH) 0.85 uIU/mL (0.55-4.78) Plasma/Serum Blood Alcohol < 3.0 mg/dL (<10) Hepatitis B Surface Antigen Negative (Negative) Hepatitis C Antibody Negative (Negative) Other Laboratory Tests 06/20/25 07:44 Brief Hx & Hospital Course: Graham Hooker is a 49 years old male patient with history of recurrent boils presented to the ED with the chief complaints of severe gluteal pain for 7 days. Patient reported he has been having history of boils but relieved with antibiotic ointment. One week back patient developed swelling on right gluteal region near cleft for which he took Augmentin but no result and it has been worsening for last couple of days associated with fever, chills which brought him to visit ED. 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 Patient denies recent any trauma, bite and other associated symptoms. On admission his white count was 17.5. Pain was managed with both oral and IV medication and IV antibiotics were given. Surgery was consulted incision and drainage procedure was done on 06/17/25. His pain reduced over the course of his hospital stay. On evaluation today, the patient mentions that has pain has reduced since admission. All vitals and labs were reviewed today. Wound culture showed few Gram-positive cocci in pairs. Patient was discharged home in a stable condition with antibiotics and pain medication for 5 days. All medications and recommendations were explained thoroughly to the patient and he demonstrated understanding of the same. All questions were answered and all concerns were addressed. Patient was asked to follow-up with surgery, in [place] clinic and with PCP. 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 Denies smoking, alcohol and other drug abuse Allergies: No known allergies Home medications: None Operations or Procedures 1.POSTOPERATIVE DIAGNOSIS: Right gluteal abscess. PROCEDURE PERFORMED: Incision and drainage of right gluteal abscess. SURGEON: Dr. Sexton ENDOCRINOLOGIST: González Vivar NP ANESTHESIA: General endotracheal anesthesia. PROCEDURE DESCRIPTION: The patient was brought to the operating room and placed in a supine position. After the induction of adequate general anesthesia under the supervision of Dr. Sexton, the patient was repositioned into the prone position. The right gluteal region was prepped with wet Betadine solution and draped in a sterile fashion. A vertical incision was made over the area of fluctuance in the right buttock. This resulted in the immediate expression of approximately 80 cc of purulent, foul-smelling drainage. Cultures of the purulent material were obtained and sent for analysis. The wound cavity was subsequently irrigated using a pulse lavage system with one liter of normal saline containing one gram of Ancef. Following thorough irrigation, the wound was packed with half-inch iodoform gauze. A sterile dressing was applied. Sponge, needle, and blade counts were confirmed to be correct at the conclusion of the procedure. The patient tolerated the procedure well and was transferred to the post- anesthesia care unit in stable condition without any immediate complications. Condition at Discharge: Fair Final Diagnosis/Problems List Rt Gluteal abscess /cellulitis ? Possible anal fissure Sepsis likely due to above Obesity,class 1 BMI 31.2 Discharge Disposition: Home Discharge Instruct/Medications Diet: Consistent carbohydrate, Cardiac 2g Na,low cholest Activity: No Restrictions, As Tolerated Follow Up/Referral: p[facility] [place] 1-2 wks Medications: Augmentin 2 times daily for 5 days [place] as prescribed Resume home medications Scheduled Amoxicillin & Pot Clavulanate (Augmentin Tablet), 875 MG PO BID Scheduled PRN Hydrocodone-Acetaminophen (Hydrocodone Bitartrate/AC 5-325 mg), 1 TAB PO Q6HP PRN Discharge Statement: "Patient was advised to return to the ER or call 911 if any headaches, dizziness, shortness of breath, chest pain, abdominal pain, bleeding, fevers, or worsening of medical condition. Patient was counseled about treatment plan, medications, possible side effects, patientverbalized understanding. All questions were answered to the best of my ability. This discharge took greater then 30 minutes in planning, reviewing documentation, counseling the patient, and discussing with other team members." ASSESSMENT ASSESSMENT Assessment Rt Gluteal abscess /cellulitis ? Possible anal fissure Sepsis likely due to above SAMIR MARTIN RESIDENT Jun 20, 2025 16:15
== END 2025-06-20 16:05 | disposition home or self-care (01) | DRG 720 ==
LOC: ER 14:06 → EDBD 14:06 → OVERFLOW 16:29 → EAST 18:41
PROVIDERS: ADMIT Internal Medicine Geriatric Medicine; ATTEND Internal Medicine Geriatric Medicine
PROC: 0Y900ZZ Drainage of Right Buttock, Open Approach (ICD-10-PCS; principal; 2025-06-17 10:36)
DX: A41.9 Sepsis, unspecified organism (principal); L02.31 Cutaneous abscess of buttock; E66.9 Obesity, unspecified; L03.317 Cellulitis of buttock; K60.2 Anal fissure, unspecified; Z90.81 Acquired absence of spleen; Z82.49 Family history of ischemic heart disease and other diseases of the circulatory system; Z81.8 Family history of other mental and behavioral disorders; Z68.31 Body mass index [BMI] 31.0-31.9, adult
CPT/HCPCS: 36415; 80048; 80053; 80202; 80320; 83605; 83735; 83880; 84443; 85025; 85610; 85730; 86803; 87040; 87081; 87205; 87340; G0378; J1885; J2405; J2543; J2704; J3490